=== PATIENT | male | born 1990 | race Caucasian/White ===

== ENCOUNTER 2021-07-27 18:28 | Emergency (ER) | payer OTHER, SELFPAY ==
[2021-07-27 18:49] VITALS: BP 142/90; PULSE 88; RESP 16; TEMP 36.1; O2SAT 99
--- NOTE | 2021-07-27 18:59 | ED.MALEGU ---
HPI - Male Genitourinary General Chief complaint: Urogenital-Male Stated complaint: blood in urine Time Seen by Provider: 07/27/21 18:59 Source: patient Mode of arrival: ambulatory Limitations: no limitations History of Present Illness HPI Narrative: Davide Parisi is a 31 yo male with no PMH who comes to express care with blood in urine-patient states that had first encounter with blood in his urine last Thursday and over the weekend had a large blood clot clot, after that episode urine cleared but again had random small clots in his urine today, urine was very dark color and is thick ; denies any pain with any of these episodes Patient denies that he has possibly of having an STD Related Data Allergies Allergy/AdvReac Type Severity Reaction Status Date / Time No Known Allergies Allergy Verified 07/27/21 18:54 Review of Systems Review of Systems: CONSTITUTIONAL: Denies fever, chills, sweats. EYES: Denies visual changes, redness, discharge. ENT: Denies rhinorrhea, congestion, sore throat, otalgia. CARDIOVASCULAR: Denies chest pain, palpitations, edema. RESPIRATORY: Denies dyspnea, wheezing, cough GASTROINTESTINAL: Denies abdominal pain, nausea, vomiting, diarrhea. GENITOURINARY: Has dysuria, has hematuria, abnormal discharge SKIN: Denies rash or itching. NEUROLOGIC: Denies numbness, or focal weakness. PSYCHIATRIC: Denies anxiety or depression. [facility] Social History Social History (Updated 07/27/21 @ 19:14 by Susie Winn CNP) Smoking status: Never smoker Alcohol intake: current Comments At time of signature, I agree with nursing past medical, surgical, social and family history. There is no relevant family history pertinent to the presenting complaint. Blood pressure is elevated and should follow with a physician this week he is to follow-up with urology also at the beginning of the week Exam Narrative: GENERAL: This is a well-nourished, very physically fit, well-developed patient, in mild distress. HEAD: normocephalic, atraumatic. EYES: . Sclera clear/white. Vision is grossly intact. EARS: External ears normal, Hearing grossly intact. NOSE: External nose normal without nasal discharge, nares without redness, no rhinorrhea. THROAT: Mucous membranes moist, NECK: Neck supple, CARDIOVASCULAR: Regular rate and rhythm without murmurs, gallops, or rubs. RESPIRATORY: Clear to auscultation. Breath sounds equal bilaterally. No wheezes, rales, or rhonchi. GASTROINTESTINAL: Abdomen soft, SKIN: warm, intact with no suspicious lesions or rash, good texture and turgor. NEURO: awake, alert, and oriented to person, place and time. There were no obvious focal neurologic abnormalities. Steady gait EXTREMITIES: Normal range of motion. BACK: Nontender without deformity Course Course Emergency Course: Patient has had intermittent blood clots over the last week and now his urine looks dark with either old blood or bilirubin as well as fresh blood-denies any pain on urination but says he has hesitancy at times for flow states he feels it is because of the clots that are in his penis and when they clear is able to urinate without any problem Started on Cipro 500 mg 1 twice daily x7 days Patient is to follow-up on Thursday with an appointment to urology to have testing done; if pain occurs or increased bright red bleeding he is to go to the emergency room Vital Signs Vital signs: Vital Signs Temperature 97.0 F L 07/27/21 18:49 Pulse Rate 88 07/27/21 18:49 Respiratory Rate 16 07/27/21 18:49 Blood Pressure 142/90 H 07/27/21 18:49 Pulse Oximetry 99 07/27/21 18:49 Temperature 97.0 F L 07/27/21 18:49 Pulse Rate 88 07/27/21 18:49 Respiratory Rate 16 07/27/21 18:49 Blood Pressure 142/90 H 07/27/21 18:49 Pulse Oximetry 99 07/27/21 18:49 MDM - Male Genitourinary Differential Diagnosis Differential diagnosis: Likely urinary tract infection, urethritis, prostatitis, acute retention of urine and
== END 2021-07-27 19:30 | disposition home or self-care (01) ==
PROVIDERS: Emergency Provider Nurse Practitioner
DX: R31.9 Hematuria, unspecified (principal)
CPT/HCPCS: 99203; G0463

== ENCOUNTER 2025-05-25 07:42 | Emergency (ER) | payer OTHER, SELFPAY ==
--- OUTSIDE RECORDS SUMMARY | 2021-09-17 07:15 | XMS_ITS | Continuity of Care Document ---
Author Organization [email or web address] Address [address] [place] [address] Phone Care Team Providers Care Shift Nurse Manager Name Role Phone Yuniel Penaloza MD Unavailable Unavailable Advance Directives Directive Yes / No Effective Date File Name No Information Encounters Encounter Description Practice Location Reason(s) For Visit Diagnoses Date Provider Providers Copied on Encounter [email or web address] , [address], [place], [place], [id number], [place] tel:[phone] [facility] [place] No Information Tremaine Brice. [address], [place], [place], [address], [place]. tel:[phone] Family History Family Member Type Diagnosis Age At Onset No Information Payers Payer name Insurance type Covered libertarian ID Authoriza tion(s) No Information Social History Type Description Quantity Date Captured Comments Sex Male Smoking Status No Information Chief Complaint And Reason For Visit No Information Reason For Referral Reason For Referral No Information History Of Present Illness Encounter Date Complaint History Of Prese nt Illness No Information Functional Status Date Functional Assessmen t No Information Instructions Date Instruction Additional Infor mation No Information Assessments Type Assessment Date No Information Patient Care Teams Name Effective Dates (start - stop) Status Members No Information
--- OUTSIDE RECORDS SUMMARY | 2021-09-17 07:15 | XMS_ITS | Continuity of Care Document ---
Author Organization [facility] Address [address] [place] [address] Phone Care Team Providers Care Courier Driver Name Role Phone Yuniel Penaloza MD Unavailable Unavailable Advance Directives Directive Yes / No Effective Date File Name No Information Encounters Encounter Description Practice Location Reason(s) For Visit Diagnoses Date Provider Providers Copied on Encounter [facility] , [address], [place], [place], [id number], [place] tel:[phone] [facility] [place] No Information Tremaine Brice. [address], [place], [place], [address], [place]. tel:[phone] Family History Family Member Type Diagnosis Age At Onset No Information Payers Payer name Insurance type Covered republican ID Authoriza tion(s) No Information Social History [...]
--- NOTE | ~2025-05-25 | CT_ITS ---
EXAMINATION: CT ankle RT wo con DATE: 05/25/2025 08:09 INDICATION: Right Achilles injury. TECHNIQUE: Computed tomography (CT) of the right ankle was performed without intravenous contrast. Automated exposure control and iterative reconstruction technique were employed. The dose-length product was 569.29 mGy-cm. COMPARISON: None FINDINGS: Alignment is normal. No fracture. There is mild osteoarthritis of talonavicular joint. There is at least a partial tear of Achilles tendon centered 6 cm proximal to the distal attachment. IMPRESSION: 1. At least partial tear of Achilles tendon centered 6 mm proximal to the distal attachment. Reviewed, dictated and finalized at location E. IMPRESSION: 1. At least partial tear of Achilles tendon centered 6 mm proximal to the dista l attachment.
--- OUTSIDE RECORDS SUMMARY | 2025-05-25 07:54 | XMS_ITS | Encounter Summary ---
Author Organization [facility] Address [address] [place] [address] Care Team Providers Care Lining Vamper Name Role Phone Unavailable Primary Care Provider Unavailabl e Encounter Details Date Type Department Care Team (Late st Contact Info) Description 08/13/2021 Lab Requisition [facility] Care Pathology Lab [address] [place] [address] Natividad Ahumada MD [address] [place] [address] Illness, unspecified Social History Tobacco Use Types Packs/Day Years Used Date Smoking Tobacco: Never Assessed Sex and Gender Information Value Date Recorded Sex Assigned at Not on file Legal Sex Male 8:11 AM CDT Gender Identity Not on file Sexual Orientation Not on file documented as of this encounter Plan of Treatment Not on file documented as of this encounter Procedures Procedure Name Priority Date/Time Associated Diagnosis Comments PATH CONSULT ON REFERRED CASE Routine 08/08/2021 1:03 PM BEAN WEIGHER Illness, unspecified documented in this encounter Results * PATH CONSULT ON REFERRED CASE (08/08/2021 1:03 PM BEAN WEIGHER) Final Diagnosis URINE, VOIDED, THIN PREP, CYTOLOGY (OSC: [id number]; 08/08/2021): - Negative for high-grade urothelial carcinoma - Urothelial cells and red blood cells 08/14/2021 4:19 PM BEAN WEIGHER [facility] at [address] [facility] Microscopic Description and Comment Microscopic examination substantiates the final diagnosis. 08/14/2021 4:19 PM BEAN WEIGHER [facility] Clinical History HEMATURIA 08/14/2021 4:19 PM BEAN WEIGHER [facility] Materials Received 1 Prepared slide received from [facility] [id number]. All material will be returned. 08/14/2021 4:19 PM [facility] Disclaimer The performance characteristics of all immunohistochemical and indirect immunofluorescence stains (if any) cited in this report were determined by the Histopathology Laboratory of [facility]. Some of these tests were developed by our own laboratory and have not been cleared or approved by the US Food and Drug Administration. The FDA does not require this test to go through premarket FDA review. These tests are used for clinical purposes. They should not be regarded as investigational or for research. This laboratory is certified under the Clinical Laboratory Improvement Amendments (CLIA) as qualified to perform high complexity clinical laboratory testing. This case has been personally reviewed and interpreted by the attending (teaching) pathologist. 08/14/2021 4:19 PM [facility] Case Report Surgical Pathology Report Case: [id number] Authorizing Provider: Natividad Ahumada MD Collected: 08/08/2021 01:03 PM Ordering Location: [facility] Pathology Lab Received: 08/13/2021 01:03 PM Pathologist: Jessie Kraus MD Specimen: Slide Consultation 08/14/2021 4:19 PM [facility] Embedded Images 08/14/2021 4:19 PM [facility] Pathology/Cytolo gy SURGICAL PATHOLOGY CONSULTATION AND REPORT ON REFERRED SLIDES PREPARED ELSEWHERE / Unknown 08/08/2021 1:03 PM BEAN WEIGHER 08/13/2021 1:03 PM BEAN WEIGHER Natividad Ahumada MD LAB - PATHOLOGY/CYTOLOGY ORDERAB LES Final Result [facility] PATH[facility]Y LAB [address] [phone] documented in this encounter Visit Diagnoses Diagnosis Illness, unspecified documented in this encounter
--- OUTSIDE RECORDS SUMMARY | 2025-05-25 07:54 | XMS_ITS | Clinical Summary ---
Author Organization [facility] Address [address] [place] [address] Care Team Providers Care Fine Grade Bulldozer Operator Name Role Phone Unavailable Primary Care Provider Unavailabl e Source Comments [facility],non-owned Affiliates and Associated Physician Practices is amultiple site organization consisting of ambulatory clinics and hospital sitesin [place], [place], [place] and [place]. This disclosure is being madepursuant to the Care Everywhere program and may not contain all information available regarding this patient. Last updated 18.[facility] [employer] Social History Tobacco Use Types Packs/Day Years Used Date Smoking Tobacco: Never Assessed Sex and Gender Information Value Date Recorded Sex Assigned at Not on file Legal Sex Male 8:11 AM CDT Gender Identity Not on file Sexual Orientation Not on file Plan of Treatment Health Maintenance Due Date Last Done Comments HIV SCREENING 02/26/2007 HEPATITIS C SCREENING 02/22/2010 DTAP/TDAP/TD VACCINES (1 - Tdap) 02/26/2011 HEPATITIS B VACCINE (1 of 3 - 19+ 3-dose series) 02/26/2011 HPV VACCINE (1 - 3-dose SCDM series) 02/26/2019 DEPRESSION SCREENING 09/07/2024 COVID-19 VACCINE (1 - 2023-2 5 season) 2025 INFLUENZA VACCINE (#1) 2025 07/27/2015 ZOSTER VACCINE (1 of 2) 02/26/2042 HIB VACCINE Aged Out No longer eligi ble based on patient's age to complete this topic MENINGOCOCCAL (Group B) VACC INE SHARED DECISION-MAKING Aged Out No longer eligibl e based on patient's age to complete this topic MENINGOCOCCAL GROUPS A/C/Y/W VACCINE Aged Out No longer eligible b ased on patient's age to complete this topic PNEUMOCOCCAL VACCINE Aged Out No long er eligible based on patient's age to complete this topic Insurance [facility] [place] [id number] [facility]
--- NOTE | 2025-05-25 07:55 | ED.GENADULT ---
HPI - General Adult General Chief complaint: Extremity Injury, Lower Stated complaint: possible torn achilles Time Seen by Provider: 05/25/25 07:50 History of Present Illness HPI narrative: 35-year-old male present to the emergency department for evaluation for a right ankle injury. Patient was doing sprints and felt a pop and his right Achilles tendon. Patient states he is unable to plantar or dorsiflex. Patient states he felt a pop and fell to the ground but denies striking head denies any loss of consciousness. Patient's primary complaint is inability to move the ankle. Patient declined any medications for pain control at this time. Related Data Allergies Allergy/AdvReac Type Severity Reaction Status Date / Time No Known Allergies Allergy Verified 07/27/21 18:54 Review of Systems Review of Systems: All systems reviewed & are unremarkable except as noted in HPI and below PMFSH Social History Social History (Updated 07/27/21 @ 19:14 by Susie Winn, ORTHOTIC FITTER) Smoking status: Never smoker Alcohol intake: current Course Vital Signs Vital signs: Vital Signs Temperature 98.2 F 05/25/25 08:26 Pulse Rate 89 05/25/25 08:26 Respiratory Rate 18 05/25/25 08:26 Blood Pressure 136/85 05/25/25 08:26 Pulse Oximetry 100 05/25/25 08:26 Oxygen Delivery Room Air 05/25/25 08:26 Temperature 98.0 F 05/25/25 09:04 Pulse Rate 83 05/25/25 09:04 Respiratory Rate 20 05/25/25 09:04 Blood Pressure 135/80 05/25/25 09:04 Pulse Oximetry 100 05/25/25 09:04 Oxygen Delivery Room Air 05/25/25 08:26 Medical Decision Making [facility] Narrative Medical decision making narrative: 35-year-old male present to the emergency department for evaluation for right ankle injury. Patient's suspected he injured his Achilles tendon. CT scan was ordered and does show least a partial tear of the right Achilles. Patient was placed in a short-leg splint, provided crutches for nonweightbearing and patient will be referred outpatient follow-up with Orthopedics. Patient declined any medications for pain control. Patient will provided Flexeril for muscle spasm. All questions concerns were addressed patient was well-appearing at time of discharge. Differential Diagnosis Differential Diagnosis: Ankle fracture, Achilles strain, ankle sprain Vital Signs Vital Signs: Vital Signs Temperature 98.2 F 05/25/25 08:26 Pulse Rate 89 05/25/25 08:26 Respiratory Rate 18 05/25/25 08:26 Blood Pressure 136/85 05/25/25 08:26 Pulse Oximetry 100 05/25/25 08:26 Oxygen Delivery Room Air 05/25/25 08:26 Temperature 98.0 F 05/25/25 09:04 Pulse Rate 83 05/25/25 09:04 Respiratory Rate 20 05/25/25 09:04 Blood Pressure 135/80 05/25/25 09:04 Pulse Oximetry 100 05/25/25 09:04 Oxygen Delivery Room Air 05/25/25 08:26 Imaging Data Radiologist's impression: Impressions Ankle CT 05/25/25 08:12 IMPRESSION: 1. At least partial tear of Achilles tendon centered 6 mm proximal to the distal attachment. Discharge Plan Discharge Clinical Impression: Achilles tendon injury Patient Disposition: Home Condition: Stable Instructions: Antibiotic Form, Crutch Instructions (ED), Achilles Tendinitis (ED), Splint Care (ED) Additional Instructions: Splint care as directed. Crutches for nonweightbearing. ibuprofen for pain control. Flexeril as needed for additional muscle spasm. [place] as needed for additional pain control. Call to have close follow-up with Orthopedics. If you have any worsening symptoms and please call or return to the emergency department. Your physicians may want to order an outpatient MRI to better evaluate any injury to the Achilles tendon Patient Language: Algerian Prescriptions: New cyclobenzaprine 10 mg tablet 10 mg PO BID PRN (Reason: muscle spasm) Qty: 14 0RF hydrocodone-acetaminophen 5-325 mg tablet 1 tablet PO Q12H PRN (Reason: pain) Qty: 14 0RF Follow-up/Referrals: PHYSICIAN,MOTOR INSTALLER [Non-Staff, Internal Medicine] Patrick Steiner MD [Physician, Orthopedics]
--- OUTSIDE RECORDS SUMMARY | 2025-05-25 08:24 | XMS_ITS | Clinical Summary ---
Author Organization [facility] Address [address] [place] [address] Care Team Providers Care Baggage Clerk Name Role Phone Unavailable Primary Care Provider Unavailabl e Source Comments [facility],non-owned Affiliates and Associated Physician Practices is amultiple site organization consisting of ambulatory clinics and hospital sitesin [place], [place], [place] and [place]. This disclosure is being madepursuant to the Care Everywhere program and may not contain all information available regarding this patient. Last updated 18.[facility] [employer] Social History Tobacco Use Types Packs/Day Years [...] patient's age to complete this topic Insurance [facility] [place] [id number] [facility]
--- OUTSIDE RECORDS SUMMARY | 2025-05-25 08:24 | XMS_ITS | Encounter Summary ---
Author Organization [facility] Address [address] [place] [address] Care Team Providers Care Receptionist Clerk Name Role Phone Unavailable Primary Care Provider Unavailabl e Encounter Details Date Type Department Care Team (Late st Contact Info) Description 08/13/2021 Lab Requisition [facility] [address] [place] [address] Natividad Ahumada MD [address] [place] [address] Illness, unspecified Social History Tobacco Use Types [...] ON REFERRED CASE Routine 08/08/2021 1:03 PM PLASTIC SURGERY SPECIALIST Illness, unspecified documented in this encounter Results * PATH CONSULT ON REFERRED CASE (08/08/2021 1:03 PM PLASTIC SURGERY SPECIALIST) Final Diagnosis URINE, VOIDED, THIN PREP, CYTOLOGY (OSC: [id number]; 08/08/2021): - Negative for high-grade urothelial carcinoma - Urothelial cells and red blood cells 08/14/2021 4:19 PM PLASTIC SURGERY SPECIALIST [facility] [address] PLASTIC SURGERY SPECIALIST Microscopic Description and Comment Microscopic examination substantiates the final diagnosis. 08/14/2021 4:19 PM PLASTIC SURGERY SPECIALIST [facility] Clinical History HEMATURIA 08/14/2021 4:19 PM PLASTIC SURGERY SPECIALIST [facility] Materials Received 1 Prepared slide received from [facility] [id number]. All material will be returned. 08/14/2021 4:19 PM [facility] Disclaimer The performance characteristics of all immunohistochemical and indirect immunofluorescence stains (if any) cited in this report were determined by the Histopathology Laboratory of [facility]. Some of these tests were developed by [...] the attending (teaching) pathologist. 08/14/2021 4:19 PM [facility] Case Report Surgical Pathology Report Case: [id number] Authorizing Provider: Natividad Ahumada MD Collected: 08/08/2021 01:03 PM Ordering Location: [facility] Lab Received: 08/13/2021 01:03 PM Pathologist: Jessie Kraus MD Specimen: Slide Consultation 08/14/2021 4:19 PM [facility] Embedded Images 08/14/2021 4:19 PM [facility] Pathology/Cytolo gy SURGICAL PATHOLOGY CONSULTATION AND REPORT ON REFERRED SLIDES PREPARED ELSEWHERE / Unknown 08/08/2021 1:03 PM PLASTIC SURGERY SPECIALIST 08/13/2021 1:03 PM PLASTIC SURGERY SPECIALIST Natividad Ahumada MD LAB - PATHOLOGY/CYTOLOGY ORDERAB LES Final Result [facility] [address] [phone] documented in this encounter Visit Diagnoses Diagnosis Illness, unspecified documented in this encounter
[2025-05-25 08:26] VITALS: BP 136/85; PULSE 89; RESP 18; TEMP 36.8; O2SAT 100
[2025-05-25 09:04] VITALS: BP 135/80; PULSE 83; RESP 20; TEMP 36.7; O2SAT 100
== END 2025-05-25 09:09 | disposition home or self-care (01) ==
PROVIDERS: Emergency Provider Emergency Medicine
DX: S86.011A Strain of right Achilles tendon, initial encounter (principal); X50.9XXA Other and unspecified overexertion or strenuous movements or postures, initial encounter; Y93.02 Activity, running; W18.39XA Other fall on same level, initial encounter
CPT/HCPCS: 29515; 73700; 99284

== ENCOUNTER 2025-06-02 01:43 | Day surgery (SDC) | payer OTHER, SELFPAY ==
--- OUTSIDE RECORDS SUMMARY | 2021-09-17 07:15 | XMS_ITS | Continuity of Care Document ---
Author Organization [facility] Address [address] [place] [address] Phone Care Team Providers Care Segmental Wall Installer Name Role Phone Yuniel Penaloza MD Unavailable Unavailable Advance Directives Directive Yes / No Effective Date File Name No Information Encounters Encounter Description Practice Location Reason(s) For Visit Diagnoses Date Provider Providers Copied on Encounter [facility] , [address], [place], [place], [address], [place] tel:[phone] [facility] [place] No Information Tremaine Brice. [address], [place], [place], [address], [place]. tel:[phone] Family History Family Member Type Diagnosis Age [...]
[2025-05-29 09:46] VITALS: BMI 31.3
--- NOTE | 2025-05-29 09:47 | PC.NURSE ---
[facility] has started construction of its new state of the art ER which will open Spring 2026. With this, we anticipate parking may be a challenge for some our surgical patients and families. Parking spaces are limited but are available for all Surgical, obstetrics, and ER patients sharing this lot. If you arrive and find you are having a hard time finding a parking space, please note that we understand the challenges, please drive around the hospital and park near Hospital Entrance 1. When you enter this entrance, you can ask a volunteer to direct or take you back to the surgical waiting area to check in. We appreciate everyone?s understanding of these expected challenges while we build for your future. Report to the Outpatient Waiting Room, entrance under the green pavilion located off [address], at time _0830_ on date _[id number]_. Planned Procedure Time: _1030_.? Time changes happen often and if your time is changed the preop area will call you the afternoon before. - You and your visitor will be asked to self-screen and do not enter if you have any COVID symptoms. Please call surgeon if you need to reschedule. - A mask is optional within the hospital at this time. Patients may have clear liquids (water, carbonated beverages, clear teas, apple juice) until 3 hours prior to surgery with a maximum of 20 ounces. - No food from midnight until time of surgery and no smoking, or chewing tobacco (or any form of nicotine). No chewing gum, candy or mints. Take only the following medications with a SIP of water on the morning of surgery: __Hydrocodone if needed.____ DO NOT STOP ANY OF YOUR OTHER PRESCRIPTION MEDICATIONS PRIOR TO SURGERY EXCEPT THE FOLLOWING Hold all vitamins and supplements for 3 days per anesthesiologist. Medications to discontinue per physician Date to take last dose Please no make-up, nail zambian, hairspray, perfume, deodorant, or body powder the day of surgery.? No jewelry (including any body piercings) or valuables the day of surgery, leave them at home.? Please take a shower or bath the night before, or the morning of, surgery with an antibacterial soap.? Wear comfortable, loose fitting clothing.? - Jewelry must be removed prior to entering the operating room.? Rings and piercings that are not removed may be cut off. - The hospital will not accept responsibility for valuables.? - Please leave all valuables, including medications, at home the day of surgery. If you are going home after surgery, a licensed class c driver must drive you home.? - NO public transportation without another adult if you receive anesthesia. - We recommend that an adult stay with you for 24 hours following discharge. - We also recommend that you do not drive, make important decision, drink alcoholic beverages, or take any drugs that were not prescribed by your health care provider for at least 24 hours after your discharge time. Follow any additional instructions given to you from your surgeon. Telephone instructions given to __Davide___and asked if any additional questions and then verbalized understanding. Patient advised to call surgeon office or pre surgery nurse liaison [phone] if any additional questions.
[2025-06-02] VITALS (11 sets, daily range): BP systolic 120–136; BP diastolic 69–86; PULSE 60–91; RESP 12–16; TEMP 36.2–36.7; O2SAT 95–100
--- OUTSIDE RECORDS SUMMARY | 2025-06-02 01:46 | XMS_ITS ---
Author Organization Unknown ENCOUNTERS Encounter Performer Location Date Diagnosis Diagnosis Status Outpatient [id number] [place] [address] [id number] PIPPA Pre Admit [facility] [address] [place] [id number] Emergency [facility] [address] [id number] PIPPA *Note: Encounters from your own facility or health system may be excluded. Allergies, Adverse Reactions, Alerts Allergen Type Severity Identification Date Medications Name Date Quantity Days Supplied [facility] Number
--- OUTSIDE RECORDS SUMMARY | 2025-06-02 01:46 | XMS_ITS | Clinical Summary ---
Author Organization [facility] Address [address] [place] [address] Care Team Providers Care Cement Mason Name Role Phone Unavailable Primary Care Provider Unavailabl e Source Comments [facility],non-owned Affiliates and Associated Physician Practices is amultiple site organization consisting of ambulatory clinics and hospital sitesin [place], [place], [place] and [place]. This disclosure is being madepursuant to the Care Everywhere program and may not contain all information available regarding this patient. Last updated 18.[facility] [employer] Social History Tobacco Use Types Packs/Day Years [...] patient's age to complete this topic Insurance [facility] [place] [id number] [facility]
[2025-06-02] MEDS: LACTATED RINGERS 1,000 ML 30 ML IV CONT ×2 (09:30→13:16)
--- NOTE | 2025-06-02 10:05 | WPDHPUPDATE1 ---
History and Physical Update Update Date/Time: 06/02/25 10:05 History and Physical has been reviewed, including an updated exam of the patient. There are NO changes in the patient's condition. Risks, benefits, and alternatives have been discussed and questions answered. Patient agrees to proceed with procedure.
--- NOTE | 2025-06-02 10:06 | WPDHPUPDATE1 ---
History and Physical Update Update Date/Time: 06/02/25 10:06 History and Physical has been reviewed, including an updated exam of the patient. There are NO changes in the patient's condition. Risks, benefits, and alternatives have been discussed and questions answered. Patient agrees to proceed with procedure.
--- NOTE | 2025-06-02 10:43 | WPDANESEPPF ---
Anes - Initial Pre Proc Eval Procedure: Operation Date: 06/02/25 10:30 Proposed Procedures p Primary Open Repair of Achilles Tendon Rupture Right Leg, Possible Flexor Hallucis Longus Tendon Transfer Right Leg - Mike Mcdermott Jr., DPM Date/Time: 06/02/25 10:43 Surgeon: Mike Mcdermott Jr., DPM Pre Op Diagnosis: achilles tendon rupture right leg Patient Data Age: 35 Gender: M Height: 1.91 m Weight: 114 kg Last Vital Signs Temp 98.1 F 06/02/25 09:15 Pulse 85 06/02/25 09:15 Resp 16 06/02/25 09:15 BP 125/77 06/02/25 09:15 Pulse Ox 100 06/02/25 09:15 O2 Del Method Room Air 06/02/25 09:15 Allergies Allergy/AdvReac Type Severity Reaction Status Date / Time No Known Allergies Allergy Verified 06/02/25 09:48 Home Medications ?Medication ?Instructions ?Recorded ?Confirmed ?Type cyclobenzaprine 10 mg tablet 10 mg PO BID PRN muscle spasm #14 05/25/25 05/29/25 Rx tabs hydrocodone 5 mg-acetaminophen 325 1 tablet PO Q12H PRN pain #14 tabs 05/25/25 05/29/25 Rx mg tablet oxycodone-acetaminophen 5 mg-325 1 tablet PO Q4H PRN pain #40 tabs 06/01/25 Rx mg tablet (Percocet) rivaroxaban 10 mg tablet (Xarelto) 10 mg PO DAILY #14 tabs 06/01/25 Rx Patient hx anesthesia problems: none Family hx anesthesia problems: none Results Review: All pre-operative results and documents have been reviewed as part of the pre-operative evaluation. [facility] Social History Social History Smoking status: Never smoker Smokeless tobacco user: other Additional smoking assessment comments: Nicotine pouches. Alcohol intake: current Living arrangements: with family Spiritual care concerns: No Anes - Eval Final PreProcedure Day of Procedure 06/02/25 10:43 Patient weight: obese Lungs: normal air movement Airway: Mallampati scale class II Neurological: alert and oriented Last oral intake: >/= 8 hours ASA classification: II Emergent: no Anesthetic plan: proceed Anesthesia type and monitoring: general ETT and standard monitoring Results Review: All pre-operative results and documents have been reviewed as part of the pre-operative evaluation. BMI 31. Overall good health. Informed Consent: The patient's anesthetic plan and its attendant risks and benefits were discussed with the patient/family/POA. Questions were solicited and answers provided to the satisfaction of the patient/family/POA.
[2025-06-02] MEDS: LIDOCAINE 2% LOCAL INJ 20 ML VIAL 10 ML INFILTRATE (10:58)
[2025-06-02] MEDS: BUPivacaine HCL 0.5% 10 ML AMP INFILTRATE (10:58)
[2025-06-02] MEDS: ceFAZolin 2 GM in SODIUM CHLORIDE 0.9% IV 50 ML 100 ML IVPB (11:11)
--- NOTE | 2025-06-02 13:13 | P.OP_ITS ---
Procedure Note - Detailed Date of Procedure 06/02/25 Pre-op Diagnosis Achilles tendon rupture right leg Post-op Diagnosis Same Procedure Performed Primary open repair of Achilles Tendon Rupture Right leg Surgeon Mike Mcdermott Jr., DPM Anesthesia General and Local Indications Rupture of Right Achilles Tendon Findings 3cm mop end rupture of the Achilles Tendon proximal to the insertion Description of Procedure Under mild sedation, the patient was brought to the operating room, placed on the operating table in the Prone position. A pneumatic thigh tourniquet was placed about the patient's right thigh. Following general anesthesia, I performed a common peroneal nerve block distal and posterior to the neck of the fibula with 20ccs of 0.5% Marcaine Plain and 2% Lidocaine plain. The foot was scrubbed, prepped, and draped in the usual aseptic manner. An Esmarch bandage was then used to examine the patient's foot and leg and the pneumatic thigh tourniquet was then inflated at 300mmHg. Surgery began in the following manner. Attention was noted the affected distal lower leg posteriorly where a palpable gap palpated to the Achilles tendon above the insertion. I made a 20c incision from the posterior superior heel extending proximally. I used sharp and blunt dissection to visualize the paratenon and Achilles tendon. All bleeders were ligated and cauterized as necessary. I dissected the paratenon from the Achilles tendon revealing the Achilles tendon rupture. There was a 3cm rupture site to the Achilles tendon with mop ends, the rupture site was 5cm above the insertion of the Achilles. There was significant organized hematoma formation enveloping the a large component of the proximal stump of the ruptured Achilles. I used 3.0 Vicryl to reapproximate the Achilles tendon rupture with Stockton suture fashion technique along the medial and lateral aspect. Next, I used a modified Gift Box technique with Arthrex #2 Fiberwire along both the medial and lateral aspects of the tendon in between Vicryl stitching. I hand tied the suture ends both proximally and distally. Good approximation of the Achilles was noted and excellent tension to the foot was also noted. Because of the tremendous tendon injury involvement I decided to strengthen my repair with the Arthrex Mid Substance Speed bridge system. I used a straight Rd needle with #2 Fiberwire to throw a repeating Bunnel Stitch along the proximal tendon stump. Then the same Rd needle was used to suture through the distal stump of the rupture site exiting the tendon just proximal the the insertion medially and laterally, correspondingly. Next, I used two bone anchors from the Arthrex 3.9 mm Swivel Locks system to drill, tap and drive into the superior medial and lateral aspect of the calcaneus. Excellent tension was maintained with the foot held in mild equinus. I reapproximated the paratenon with 3.0 Vicryl and the subcutaneous structures with 3.0 Vicryl .Next, the skin was reapproximated with 4.0 Prolene in horizonta l mattress and simple interrupted suture fashion technique. Upon completion of the procedure, the incision was dressed with Arthrex Jumpstart Antimicrobial Dressing, 4 x 4's, Kerlix, and Coban. The pneumatic thigh tourniquet was then deflated and a prompt hyperemic response noted to all digits of the foot. I applied a posterior splint with the foot held in gravity equinus. The patient did very well with the procedure and the anesthesia. The patient was transferred to the recovery room with vital signs stable and vascular status intact to all toes of the affected foot. Following a period of postoperative monitoring, the patient will be discharged home on the following written and oral postoperative instructions: 1. Keep the dressing clean, dry, and intact. Use a cast protector bag with showers. 2. The patientThe patient will be strictly non weight bearing postoperatively. 3. The patient should be on bedrest with bathroom privileges and elevate the affected foot when at rest. 4. The patient to contact Dr. Mcdermott for all postop care and if any problems arise. 5. The patient will take Percocet 5/325 to be taken every 4 to 6 hours post operatively as needed for severe pain. Implants Arthrex # 2 Fiberwire Two Arthrex 3.9mm Swivel Lock Bone Anchors with the Midsubstance Rupture SpeedBridge system Estimated Blood Loss 1 Drains No Packing No Pathology None sent Complications No immediate complications Condition Stable Disposition Same day
[2025-06-02] MEDS: fentaNYL CITRATE INJ (*CRX) 100 MCG/2 ML VIAL 25 MCG IV PUSH ×8 (13:30→14:00)
[2025-06-02] MEDS: oxyCODONE HCL (*CRX) 5 MG TAB IR PO (15:01)
== END 2025-06-02 16:10 | disposition home or self-care (01) ==
PROVIDERS: Visit Provider Podiatrist Foot & Ankle Surgery
PROC: (CPT 27650; principal; 2025-06-02 10:30)
DX: S86.011A Strain of right Achilles tendon, initial encounter (principal); M76.61 Achilles tendinitis, right leg; X58.XXXA Exposure to other specified factors, initial encounter; Y93.02 Activity, running; F17.290 Nicotine dependence, other tobacco product, uncomplicated; E66.9 Obesity, unspecified; Z68.31 Body mass index [BMI] 31.0-31.9, adult; Z79.01 Long term (current) use of anticoagulants; Z79.891 Long term (current) use of opiate analgesic
CPT/HCPCS: 27650; J0690; A9270; J1100; J2003; J2250; J2270; J2405; J2704; J3010; J7120